=== PATIENT | female | born 1960 | race Caucasian/White ===

== ENCOUNTER 2020-12-23 18:13 | Inpatient (IN) ==
[2020-12-23] MEDS ORDERED: ASPIRIN CHEW 324 MG PO STA (19:09)
--- NOTE | 2020-12-23 19:22 | Emergency Department Note ---
Impression & Plan Chest pain, Abnormal EKG, Elevated troponin I level ED Provider Note NAME: VEENA DELUNA AGE: 60 SEX: F : 1960 ARRIVES VIA: Walk-In INFORMANT: Patient, ED PROVIDER(S): Robert Ventura DO CHIEF COMPLAINT: Chest pain HPI: The patient is a 60-year-old female who presented to the emergency department with approximately 3 to 4 days of chest and back pain. The patient states that she started noticing symptoms since . She does note that her symptoms are worsened with ambulation as well as exertion. She also does no te some symptoms with bending over to pick things up and is unsure if this is from her back. The patient denies having any nausea. The patient denies having any lower extremity swelling but does complain of some shortness of breath. She is had history of shortness of breath in the past. 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 The patient has not had any recent procedures or long distance travel. She has never had a history of a clot in her legs or in her lungs. She states her symptoms are gone at this time. ROS: See above HPI for pertinent positives & negatives. A total of 10 systems reviewed and were otherwise negative. PAST MEDICAL HISTORY: See Below PAST SURGICAL HISTORY: See Below FAMILY HISTORY: See Below SOCIAL HISTORY: See Below HOME MEDICATIONS: See Below ALLERGIES: See Below VITALS: See Below PHYSICAL EXAMINATION: GENERAL: Patient is awake alert in no acute distress patient is resting comfortably and showing no signs of anxiety EYES: The conjunctivae are clear. The pupils are round and reactive. EARS, NOSE, MOUTH AND THROAT: The nose is without any evidence of any deformity. NECK: The neck is nontender and supple. RESPIRATORY: Normal respiratory effort is noted there is no evidence of wheezing rhonchi or rales CARDIOVASCULAR: Regular rate and rhythm noted there no murmurs rubs or gallops normal S1 normal S2. GASTROINTESTINAL: The abdomen is soft. Abdomen is nontender. MUSCULOSKELETAL/EXTREMITIES: There is no evidence of gross deformity full range of motion is noted in the hips and shoulders. SKIN: There is no obvious evidence of any rash. There are no petechiae, pallor or cyanosis noted. NEUROLOGIC: Patient is awake alert and oriented x3 strength is symmetric patellar reflexes are 2+ bilaterally MEDICAL DECISION MAKING: The patient is a 60-year-old female who presented to the emergency department for an evaluation of chest discomfort. The patient had no chest discomfort in the emergency department. I did discuss the patient's laboratory and radiographic studies with her. I also discussed the limitations of the emergency department work-up for chest pain with her. Ultimately she was found to have an abnormal EKG with a detectable troponin. For this reason I discussed her case with the on-call [facility] hospitalist group. They have agreed to evaluate the patient in the emergency department for further management and disposition. The patient was treated with aspirin as well as beta-blockers in the emergency department. She was also treated with nitroglycerin. Triage Nursing notes reviewed. Prior medical records reviewed Vital Signs: reviewed and remarkable for no significant abnormalities Differential diagnosis: Cardiac ischemia, aortic dissection, pulmonary embolism, pneumothorax, pneumonia, pericarditis, myocarditis, esophageal rupture, GERD, cholecystitis, pancreatitis, musculoskeletal, as well as other pathologies. ER treatment provided: See below Diagnostics interpreted by me: ECG: EKG was obtained in the emergency department. My interpretation is normal sinus rhythm at 80 bpm. Inferior and anterior T wave versions were noted. There was no PVCs. Low lateral ST segment abnormalities were noted. No previou s tracing was available. Cardiac Monitoring: An order was placed for continuous cardiac monitoring. The monitor shows a rate of 72 bpm with sinus rhythm. Laboratory studies: As stated above and show below. Imaging studies: See below Consultation(s): I discussed this case with Dr. Chen. He will evaluate the patient in the emergency department for further management and disposition. Past Med/Surg History Surgical History History of cholecystectomy History of hysterectomy History of sinus surgery Family History Other Allergies Asthma Cancer Diabetes Heart disease Tuberculosis Denies family history of Lung disease Social History Smoking Status: Never smoker Hx Alcohol Use: Yes Hx Substance Use: No Preferred Language: Nepalese Communication Ability: Effective Fly Finisher Required: No Beliefs That Will Affect Care: None marital status: Current Living Situation: Spouse How many Children do You have: 3 Other Information That Helps Us Care for You: No Feels Safe at Home: Yes Safety Concerns: Feels Safe At This Time Assistive Devices: None Allergies Allergies Allergy/AdvReac Type Severity Reaction Status Date / Time venlafaxine [From Effexor] AdvReac Severe Elevated Unverified 12/23/20 20:29 Blood Pressure montelukast [From Singulair] AdvReac Unknown Unknown Unverified 12/23/20 20:29 Home Meds Home Medications Medication Instructions Recorded Confirmed methylphenidate HCl 54 mg 54 mg PO QAM 11/29/19 12/23/20 tablet,extended release 24 hr (Concerta) duloxetine 30 mg capsule,delayed 60 mg PO QAM 12/23/20 12/23/20 release (Cymbalta) levalbuterol tartrate 45 2 inh INHALATION Q6H 12/23/20 12/23/20 mcg/actuation aerosol inhaler (Xopenex HFA) mirtazapine 15 mg tablet (Remeron) 15 mg PO HS 12/23/20 12/23/20 omeprazole 20 mg capsule,delayed 20 mg PO HS 12/23/20 12/23/20 release Previous Rx's Medication Instructions Recorded budesonide-formoterol HFA 80 2 puff INHALATION BID #3 inhaler 10/30/20 mcg-4.5 mcg/actuation aerosol inhaler (Symbicort) Results & Data (ED) Vital Signs Vital Signs - 24 hr 12/23/20 18:16 12/23/20 18:31 12/23/20 18:40 Temperature 36.3 C L Temperature Source Temporal Artery Scan Pulse Rate 84 75 79 Pulse Rate [Radial] Pulse Rhythm Regular Pulse Strength Normal Respiratory Rate 18 19 16 Respiratory Effort / Characteristics Non-Labored Spontaneous Respiratory Depth Normal Respiratory Pattern Regular Blood Pressure 150/93 H Blood Pressure [Left Arm] Blood Pressure Mean 112 Blood Pressure Mean [Left Arm] Blood Pressure Position Sitting Pulse Oximetry 96 Oxygen Delivery Method Room Air Sepsis Recent Fever Within 48 Hours No Sepsis New/Unexplained Change in Mental Status N/A Sepsis Action Taken by Nursing No Action Required 12/23/20 18:50 12/23/20 19:00 12/23/20 19:10 Temperature Temperature Source Pulse Rate 79 89 80 Pulse Rate [Radial] Pulse Rhythm Pulse Strength Respiratory Rate 22 25 H 18 Respiratory Effort / Characteristics Respiratory Depth Respiratory Pattern Blood Pressure 139/92 Blood Pressure [Left Arm] Blood Pressure Mean 107 Blood Pressure Mean [Left Arm] Blood Pressure Position Pulse Oximetry Oxygen Delivery Method Sepsis Recent Fever Within 48 Hours Sepsis New/Unexplained Change in Mental Status Sepsis Action Taken by Nursing 12/23/20 19:20 12/23/20 19:30 12/23/20 19:40 Temperature Temperature Source Pulse Rate 81 74 75 Pulse Rate [Radial] Pulse Rhythm Pulse Strength Respiratory Rate 22 12 24 Respiratory Effort / Characteristics Respiratory Depth Respiratory Pattern Blood Pressure Blood Pressure [Left Arm] Blood Pressure Mean Blood Pressure Mean [Left Arm] Blood Pressure Position Pulse Oximetry Oxygen Delivery Method Sepsis Recent Fever Within 48 Hours Sepsis New/Unexplained Change in Mental Status Sepsis Action Taken by Nursing 12/23/20 19:50 12/23/20 20:00 12/23/20 20:10 Temperature Temperature Source Pulse Rate 72 72 84 Pulse Rate [Radial] Pulse Rhythm Pulse Strength Respiratory Rate 16 23 28 H Respiratory Effort / Characteristics Respiratory Depth Respiratory Pattern Blood Pressure Blood Pressure [Left Arm] Blood Pressure Mean Blood Pressure Mean [Left Arm] Blood Pressure Position Pulse Oximetry Oxygen Delivery Method Sepsis Recent Fever Within 48 Hours Sepsis New/Unexplained Change in Mental Status Sepsis Action Taken by Nursing 12/23/20 20:20 12/23/20 20:30 12/23/20 21:04 Temperature Temperature Source Pulse Rate 80 75 Pulse Rate [Radial] 73 Pulse Rhythm Pulse Strength Respiratory Rate 16 24 16 Respiratory Effort / Characteristics Respiratory Depth Respiratory Pattern Blood Pressure Blood Pressure [Left Arm] 139/72 Blood Pressure Mean Blood Pressure Mean [Left Arm] 94 Blood Pressure Position Pulse Oximetry 97 Oxygen Delivery Method Sepsis Recent Fever Within 48 Hours Sepsis New/Unexplained Change in Mental Status Sepsis Action Taken by Residential Medications Current Medication List: was personally reviewed by me Laboratory Data Attestation: I reviewed the patient's lab results. Result diagrams: 12/24/20 01:36 12/24/20 01:36 Lab Results 12/23/20 12/23/20 12/23/20 Range/Units 17:37 17:37 18:42 WBC 7.42 (4.8-10.8) K/uL RBC 4.56 (4.2-5.4) M/uL Hgb 13.8 (12.0-16.0) g/dL Hct 41.6 (37-47) % MCV 91.2 (80-100) fL MCH 30.3 (25-34) pg MCHC 33.2 (32-36) g/dL RDW Std Deviation 44.2 (36.4-46.3) fL RDW Coeff of Coni 13.2 (11.5-14.5) % Plt Count 327 (130-400) K/uL MPV 9.1 (7.4-10.4) fL Immature Gran % (Auto) 0.3 % Neut % (Auto) 53.3 % Lymph % (Auto) 35.3 % Canyon % (Auto) 9.8 % Eos % (Auto) 1.2 % Baso % (Auto) 0.1 % Neut # (Auto) 3.95 (1.4-6.5) K/uL Lymph # (Auto) 2.62 (1.2-3.4) K/uL Canyon # (Auto) 0.73 H (0.11-0.59) K/uL Eos # (Auto) 0.09 (0-0.5) K/uL Baso # (Auto) 0.01 (0-0.2) K/uL Immature Gran # (Auto) 0.02 (0.00-0.02) K/uL PT (9.0-12.0) Seconds INR (0.9-1.1) APTT (21.0-31.0) Seconds PTT Ratio D-Dimer (0-500) ug/L FEU Sodium (136-145) mmol/L Potassium (3.5-5.1) mmol/L Chloride (98-107) mmol/L Carbon Dioxide (21-32) mmol/L Anion Gap (3-11) BUN (7-18) mg/dl Creatinine (0.6-1.2) mg/dl Est Cr Clr Drug Dosing ml/min Est GFR ( Amer) ml/min Est GFR (Non-Af Amer) ml/min BUN/Creatinine Ratio (10-20) Glucose (70-99) mg/dl Calcium (8.5-10.1) mg/dl Total Bilirubin (0.2-1) mg/dl AST (15-37) U/L ALT (12-78) U/L Alkaline Phosphatase (45-117) U/L Troponin I (0-0.045) ng/ml Total Protein (6.4-8.2) gm/dl Albumin (3.4-5.0) gm/dl Globulin (2.5-4.0) gm/dl Albumin/Globulin Ratio (0.9-2) Lipase (73-393) U/L COVID-19 Eval Order Covid19 at [facility] SARS-CoV-2 (PCR) NEGATIVE (Negative) 12/23/20 12/23/20 Range/Units 18:42 18:42 WBC (4.8-10.8) K/uL RBC (4.2-5.4) M/uL Hgb (12.0-16.0) g/dL Hct (37-47) % MCV (80-100) fL MCH (25-34) pg MCHC (32-36) g/dL RDW Std Deviation (36.4-46.3) fL RDW Coeff of Coni (11.5-14.5) % Plt Count (130-400) K/uL MPV (7.4-10.4) fL Immature Gran % (Auto) % Neut % (Auto) % Lymph % (Auto) % Canyon % (Auto) % Eos % (Auto) % Baso % (Auto) % Neut # (Auto) (1.4-6.5) K/uL Lymph # (Auto) (1.2-3.4) K/uL Canyon # (Auto) (0.11-0.59) K/uL Eos # (Auto) (0-0.5) K/uL Baso # (Auto) (0-0.2) K/uL Immature Gran # (Auto) (0.00-0.02) K/uL PT 10.9 (9.0-12.0) Seconds INR 1.1 (0.9-1.1) APTT 27.1 (21.0-31.0) Seconds PTT Ratio 1.0 D-Dimer < 190 (0-500) ug/L FEU Sodium 141 (136-145) mmol/L Potassium 4.2 (3.5-5.1) mmol/L Chloride 107 (98-107) mmol/L Carbon Dioxide 25 (21-32) mmol/L Anion Gap 9.0 (3-11) BUN 15 (7-18) mg/dl Creatinine 0.86 (0.6-1.2) mg/dl Est Cr Clr Drug Dosing 72.5 ml/min Est GFR ( Amer) 86.3 ml/min Est GFR (Non-Af Amer) 74.5 ml/min BUN/Creatinine Ratio 16.9 (10-20) Glucose 99 (70-99) mg/dl Calcium 9.0 (8.5-10.1) mg/dl Total Bilirubin 0.2 (0.2-1) mg/dl AST 33 (15-37) U/L ALT 44 (12-78) U/L Alkaline Phosphatase 77 (45-117) U/L Troponin I 0.108 H* (0-0.045) ng/ml Total Protein 7.3 (6.4-8.2) gm/dl Albumin 3.7 (3.4-5.0) gm/dl Globulin 3.6 (2.5-4.0) gm/dl Albumin/Globulin Ratio 1.0 (0.9-2) Lipase 152 (73-393) U/L COVID-19 Eval Order SARS-CoV-2 (PCR) (Negative) Administered Medications Acetaminophen (Acetaminophen 325 Mg Tab) 650 mg PO Q4H PRN PRN Reason: Pain or Fever Stop: 01/22/21 21:38 Last Admin: 12/24/20 09:15 Dose: 650 mg Documented by: [id number] Admin: 12/23/20 21:47 Dose: 650 mg Documented by: [id number] Aspirin (Aspirin 81 Mg Ectab) 81 mg PO [facility] Stop: 01/23/21 08:59 Last Admin: 12/24/20 07:44 Dose: 81 mg Documented by: [id number] Duloxetine HCl (Duloxetine Hcl 60 Mg Cap) 60 mg PO [facility] Stop: 01/23/21 08:59 Last Admin: 12/24/20 07:44 Dose: 60 mg Documented by: [id number] Fluticasone/Vilanterol (Fluticasone/Vilanterol 100/25mcg 14 Puffs/Inhaler) 1 puffs INH DAILY [facility]; Protocol Stop: 01/23/21 08:59 Last Admin: 12/24/20 07:52 Dose: Not Given Documented by: [id number] Metoprolol Succinate (Metoprolol Succ 25mg Ext Rel Tab) 25 mg PO [facility] Stop: 01/23/21 08:59 Last Admin: 12/24/20 07:44 Dose: 25 mg Documented by: [id number] Mirtazapine (Mirtazapine Tab 15 Mg Tab) 15 mg PO HS JULIET Stop: 01/22/21 22:59 Last Admin: 12/23/20 23:06 Dose: 15 mg Documented by: [id number] Pantoprazole Sodium (Pantoprazole 40 Mg Tab) 40 mg PO HS JULIET; Protocol Stop: 01/22/21 22:59 Last Admin: 12/23/20 23:06 Dose: 40 mg Documented by: [id number] Discontinued Medications Aspirin (Aspirin Chew 324 Mg) 324 mg PO NOW STA Stop: 12/23/20 19:10 Last Admin: 12/23/20 19:20 Dose: 324 mg Documented by: [id number] Clopidogrel Bisulfate (Clopidogrel Bisulfate 300 Mg Tab) Confirm Administered Dose 600 mg .ROUTE .STK-MED ONE Stop: 12/24/20 13:46 Last Admin: 12/24/20 13:46 Dose: 600 mg Documented by: [id number] Fentanyl Citrate (Fentanyl Citrate 100 Mcg/2 Ml Vial) Confirm Administered Dose 100 mcg .ROUTE .STK-MED ONE Stop: 12/24/20 11:55 Last Admin: 12/24/20 13:42 Dose: 100 mcg Documented by: [id number] Heparin Sodium (Porcine) (Heparin (Porcine) 1000 Unit/Ml 10 Ml (Venipuncturist Use Only)) Confirm Administered Dose 10,000 units .ROUTE .STK-MED ONE Stop: 12/24/20 11:55 Last Admin: 12/24/20 13:42 Dose: 10,000 units Documented by: [id number] Heparin Sodium/Sodium Chloride (Heparin In Nss Infusion 1000 Unit/500 Ml (2 U/Ml) Bag) Confirm Administered Dose 3,000 units IV .STK-MED ONE Stop: 12/24/20 11:55 Last Admin: 12/24/20 13:14 Dose: 3,000 units Documented by: [id number] Levalbuterol HCl (Levalbuterol Tartrate 15 Gm Hfa.Aer.Ad) 2 puffs INH Q6R JULIET Stop: 01/22/21 22:29 Last Admin: 12/24/20 07:30 Dose: Not Given Documented by: [id number] Admin: 12/24/20 00:49 Dose: 2 puffs Documented by: [id number] Admin: 12/24/20 00:42 Dose: Not Given Documented by: [id number] Metoprolol Succinate (Metoprolol Succ 50mg Ext Rel Tab) 25 mg PO NOW STA Stop: 12/23/20 20:28 Last Admin: 12/23/20 21:13 Dose: 25 mg Documented by: [id number] Midazolam HCl (Midazolam Hcl 1 Mg/Ml 2ml Vial) Confirm Administered Dose 2 mg .ROUTE .STK-MED ONE Stop: 12/24/20 11:55 Last Admin: 12/24/20 13:42 Dose: 2 mg Documented by: [id number] Midazolam HCl (Midazolam Hcl 1 Mg/Ml 2ml Vial) Confirm Administered Dose 2 mg .ROUTE .STK-MED ONE Stop: 12/24/20 13:32 Last Increment: 12/24/20 13:43 Dose: 1 mg Documented by: [id number] Nicardipine HCl (Nicardipine Hcl Inj 2.5 Mg/Ml 10 Ml Amp) Confirm Administered Dose 25 mg .ROUTE .STK-MED ONE Stop: 12/24/20 11:55 Last Admin: 12/24/20 13:14 Dose: 25 mg Documented by: [id number] Nitroglycerin (Nitroglycerin 2% Ointment 30gm Tube) 1 inch EXT NOW ONE Stop: 12/23/20 20:28 Last Admin: 12/23/20 20:38 Dose: 1 inch Documented by: [id number] Nitroglycerin (Nitroglycerin Sl 0.4 Mg/Tab Tab) Confirm Administered Dose 0.4 mg .ROUTE .STK-MED ONE Stop: 12/24/20 09:03 Last Admin: 12/24/20 09:11 Dose: 0.4 mg Documented by: [id number] Nitroglycerin (Nitroglycerin Sl 0.4 Mg/Tab Tab) Confirm Administered Dose 0.4 mg .ROUTE .STK-MED ONE Stop: 12/24/20 09:03 Last Admin: 12/24/20 10:36 Dose: Not Given Documented by: [id number] Nitroglycerin (Nitroglycerin Sl 0.4 Mg/Tab Tab) 0.4 mg SL ONCE ONE Stop: 12/24/20 09:04 Last Admin: 12/24/20 09:04 Dose: 0.4 mg Documented by: [id number] Nitroglycerin/Dextrose (Nitroglycerin/D5w 100mcg/Ml 20ml Syr) Confirm Administered Dose 2,000 mcg .ROUTE .STK-MED ONE Stop: 12/24/20 11:55 Last Admin: 12/24/20 13:14 Dose: 2,000 mcg Documented by: [id number] Norepinephrine Bitartrate (Norepinephrine Bitartrate 1 Mg/Ml 4 Ml Vial (Venipuncturist Use Only)) Confirm Administered Dose 8 mg .ROUTE .STK-MED ONE Stop: 12/24/20 13:15 Last Admin: 12/24/20 13:44 Dose: Not Given Documented by: [id number] Imaging Data Radiologist's Impression: Chest X-Ray 12/23/20 18:54 XR chest 1V portable CLINICAL HISTORY: Chest Pain COMPARISON STUDY: November 29, 2019 FINDINGS: No pneumothorax. No pleural effusion. No large infiltrates or consolidative lesions are seen. Linear density at bilateral lower lungs was also seen on prior study and might represent chronic fibrotic changes or scattered atelectasis. Cardiomediastinal silhouette is within upper limits of normal, slightly worsened since prior. No significant pulmonary vascular congestion.. Aorta is tortuous. Osseous structures: Mild degenerative changes of the spine. IMPRESSION: 1. Interval prominence of the cardiac silhouette without significant pulmonary vascular congestion. ACT 112: Negative or not required by law. The above report was generated using voice recognition software. It may contain grammatical, syntax or spelling errors. Electronically signed by: Tawny Hurst DO 12/23/2020 8:07 PM Discharge Plan Visit Data Chief Complaint: Chest Pain Stated Complaint: CHEST PAIN ED Provider: Robert Ventura Discharge Problem: Chest pain, Abnormal EKG, Elevated troponin I level Patient Disposition: Admitted As Inpatient Condition: Good Discharge Instructions Interventions: ED Discharge Assessment Last Done: 12/23/20 22:04
[2020-12-23 19:37] LABS: Basophils # (auto) 0.01 K/uL (0-0.2); Basophils % (auto) 0.1 %; Eosinophils # (auto) 0.09 K/uL (0-0.5); Eosinophils % (auto) 1.2 %; Hematocrit (blood only) 41.6 % (37-47); Hemoglobin 13.8 g/dL (12.0-16.0); Immature Granulocytes # (auto) 0.02 K/uL (0.00-0.02); Immature Granulocytes % (auto) 0.3 %; Lymphocytes # (auto) 2.62 K/uL (1.2-3.4); Lymphocytes % (auto) 35.3 %; Mean Corpuscular Hemoglobin 30.3 pg (25-34); Mean Corpuscular Hgb Conc 33.2 g/dL (32-36); Mean Corpuscular Volume 91.2 fL (80-100); Mean Platelet Volume 9.1 fL (7.4-10.4); Monocytes # (auto) 0.73 K/uL (0.11-0.59); Monocytes % (auto) 9.8 %; Neutrophils # (auto) 3.95 K/uL (1.4-6.5); Neutrophils % (auto) 53.3 %; Platelet Count 327 K/uL (130-400); RDW Coefficient of Variation 13.2 % (11.5-14.5); RDW Standard Deviation 44.2 fL (36.4-46.3); Red Blood Count 4.56 M/uL (4.2-5.4); White Blood Count 7.42 K/uL (4.8-10.8)
[2020-12-23 19:53] LABS: Albumin Level 3.7 gm/dl (3.4-5.0); BUN Creatinine Ratio 16.9 (10-20); Creatinine Clr Calc Pharmacy 72.5 ml/min; Est GFR (African American) 86.3 ml/min; Est GFR (Non-African American) 74.5 ml/min; Potassium 4.2 mmol/L (3.5-5.1)
[2020-12-23 19:56] LABS: D Dimer < 190 ug/L FEU (0-500); INR 1.1 (0.9-1.1); Partial Thromboplastin Time 27.1 Seconds (21.0-31.0); Prothrombin Time 10.9 Seconds (9.0-12.0)
[2020-12-23 20:03] LABS: Bilirubin,Total 0.2 mg/dl (0.2-1); Globulin 3.6 gm/dl (2.5-4.0); Total Protein 7.3 gm/dl (6.4-8.2); Troponin I 0.108 ng/ml (0-0.045)
--- NOTE | 2020-12-23 20:08 | XRay Report ---
XR chest 1V portable CLINICAL HISTORY: Chest Pain COMPARISON STUDY: November 29, 2019 FINDINGS: No pneumothorax. No pleural effusion. No large infiltrates or consolidative lesions are seen. Linear density at bilateral lower lungs was a lso seen on prior study and might represent chronic fibrotic changes or scattered atelectasis. Cardiomediastinal silhouette is within upper limits of normal, slightly worsened since prior. No significant pulmonary vascular congestion.. Aorta is tortuous. Osseous structures: Mild degenerative changes of the spine. IMPRESSION: 1. Interval prominence of the cardiac silhouette without significant pulmonary vascular congestion. ACT 112: Negative or not required by law. The above report was generated using voice recognition software. It may contain grammatical, syntax o r spelling errors. Electronically signed by: Tawny Hurst DO 12/23/2020 8:07 PM
[2020-12-23] MEDS ORDERED: METOPROLOL SUCC 50MG EXT REL TAB PO STA (20:27)
[2020-12-23] MEDS ORDERED: NITROGLYCERIN 2% OINTMENT 30GM TUBE EXT ONE (20:27)
[2020-12-23] MEDS: ACETAMINOPHEN 325 MG TAB PO PRN (21:47)
--- NOTE | 2020-12-23 21:53 | History & Physical Report ---
Date of Service December 23, 2020 Assessment & Plan (1) Chest pain: Plan: 60 yo F w/ pMHx. of allergic rhinitis, asthma, allergies, and depression presenting with chest pain concerning for NSTEMI NSTEMI Symptoms concerning for unstable angina and pt. found to have elevated troponin and concerns on EKG for ischemia along with concerning family history of [place] at an early age. Differential includes - 1) pericarditis given diffuse EKG changes and positional worsening of symptoms although - no viral prodrome 2) vasospasm although - no new medications or clear precipitating factors 3) stress cardiomyopathy although - no identifiable new stress that would cause this HEART score - 6 points - moderate Wells' criteria for PE - 0 points - low risk EKG with: T wave inversion in III, AVF, V2, V3, V4, V5 no significant ST elevation or depression Troponin: 0.108 (18:45) -> 0.069 (1:36) -> D-dimer not elevated - admitted to PCU - started on metoprolol succinate & ASA - Nitroglycerin paste applied - currently chest pain free, repeat EKG with chest pain and at 11PM - low threshold to start Heparin - Cardiology consulted - ECHO ordered to look for wall motion abnormalities and would potentially show pericardial effusion or HF - trending troponin - checking TSH w/ AM labs - A1c and lipid profile to further risk stratify Asthma - continue home inhaler regimen - continue xopenex Depression - continue duloxetine and mirtazapine Reflux - continue Omeprazole Code: full Diet: NPO now - when restarting diet - gluten sensitivity DVT: SCD's, ambulation (2) Asthma: (3) Depression: (4) Exertional shortness of breath: History of Present Illness Chief Complaint: Chest pain Primary Care Provider: ALEX Saleem Lisa Cage is a 60-year-old female with a past medical history of allergic rhinitis, asthma, allergies, and depression presenting with chest pain. She first developed chest pain on which has increased in frequency and intensity. The pain was 4/10 at it's worst, felt like pressure or a weight on her chest the pain would last about 5 minutes and was brought on by activity and when she hunched down to garden. She would have improvement with rest. She has associated nausea and shortness of breath along with numbness and tingling in her arms bilaterally (worse than her chronic numbness and tingling). She has never had anything like this prior to several days ago. She had one event on , one event on Thursday, two events on Thursday and two events on Thursday. She initially attributed the pain to back pain but she came in because the pain was getting worse. She had an ECHO in November 2019 that showed a normal EF and grade I diastolic dysfunction. Social Hx.: - denies tobacco use - 2 drinks per week down from 2 drinks per day (2 weeks prior) - denies rec. drug use sig. Family Hx.: - Father had a heart attack in his 50's - PGF had either an aneurysm or heart attack in his 30's - PGM had a heart attack in her 50's Yousuf would like to be updated with any changes @ # [phone] Allergies Allergy/AdvReac Type Severity Reaction Status Date / Time venlafaxine [From Effexor] AdvReac Severe Elevated Unverified 12/23/20 20:29 Blood Pressure montelukast [From Singulair] AdvReac Unknown Unknown Unverified 12/23/20 20:29 Home Medications Medication Instructions Recorded Confirmed Type methylphenidate HCl 54 mg 54 mg PO QAM 11/29/19 12/23/20 History tablet,extended release 24 hr (Concerta) budesonide-formoterol HFA 80 2 puff INHALATION BID #3 inhaler 02/03/20 12/23/20 Rx mcg-4.5 mcg/actuation aerosol inhaler (Symbicort) duloxetine 30 mg capsule,delayed 60 mg PO QAM 12/23/20 12/23/20 History release (Cymbalta) levalbuterol tartrate 45 2 inh INHALATION Q6H 12/23/20 12/23/20 History mcg/actuation aerosol inhaler (Xopenex HFA) mirtazapine 15 mg tablet (Remeron) 15 mg PO HS 12/23/20 12/23/20 History aspirin 81 mg tablet,delayed 81 mg PO QAM #30 tab 12/25/20 Rx release atorvastatin 40 mg tablet 40 mg PO QAM 30 Days #30 tab 12/25/20 Rx clopidogrel 75 mg tablet 75 mg PO QAM 30 Days #30 tab 12/25/20 Rx metoprolol succinate 25 mg 25 mg PO QAM 30 Days #30 tab 12/25/20 Rx tablet,extended release 24 hr Past Med/Surg History Surgical History History of cholecystectomy History of hysterectomy History of sinus surgery Family History Other Allergies Asthma Cancer Diabetes Heart disease Tuberculosis Denies family history of Lung disease Social History Smoking Status: Never smoker Hx Alcohol Use: Yes Hx Substance Use: No Preferred Language: Urdu Communication Ability: Effective Medicine 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 Required: No Beliefs That Will Affect Care: None marital status: Current Living Situation: Spouse How many Children do You have: 3 Feels Safe at Home: Yes Assistive Devices: None Review of Systems Review of Systems: Constitutional: denies fevers, chills, vomiting, kobe phoresis, weight loss admits nausea Head: denies trauma, LOC, headache, confusion, vision changes admits lightheadedness with episodes neurologic: denies syncope, slurring of speech, focal weakness admits presyncope, numbness and tingling (bilateral arms) ENT: denies rhinorrhea, stuffiness, sneezing, sore throat Cardiac: denies palpitations, leg edema, orthopnea admits chest pain Pulm.: denies cough, hemoptysis, sputum production admits chronic shortness of breath that is worse with events GI: denies constipation, diarrhea, blood in stool, changes in bowel habits : denies urgency, frequency, dysuria Physical Exam Constitutional: WD/WN, vitals as above Eyes: PERRL, conjunctivae normal, anicteric sclerae ENMT: external ear and nose normal, oropharynx normal Neck: normal visual inspection Respiratory: normal respiratory effort, lungs clear to auscultation Cardiovascular: Rate/Rhythm: regular rate and regular rhythm Heart Sounds: no murmur Vessels: no JVD Extremities: no edema - no costochondral tenderness Gastrointestinal (Abdomen): normal bowel sounds, soft, nontender, no hepatosplenomegaly Skin: no rashes, warm and dry Neurologic: no focal motor deficits Psychiatric: A+Ox3, euthymic affect Results & Data Results & Data ([facility]) Vital Signs (Past 12 Hours) Vital Signs Temp Pulse Pulse Resp BP BP Pulse Ox 12/23/20 21:31 97 12/23/20 21:04 73 16 139/72 97 12/23/20 20:30 75 24 12/23/20 20:20 80 16 12/23/20 20:10 84 28 H 12/23/20 20:00 72 23 12/23/20 19:50 72 16 12/23/20 19:40 75 24 12/23/20 19:30 74 12 12/23/20 19:20 81 22 12/23/20 19:10 80 18 12/23/20 19:00 89 25 H 139/92 12/23/20 18:50 79 22 12/23/20 18:40 79 16 12/23/20 18:31 75 19 12/23/20 18:16 36.3 C L 84 18 150/93 H 96 CBC Results Results Complete Blood Count Results: RBC 4.46 M/uL (4.2-5.4) 12/25/20 WBC 6.07 K/uL (4.8-10.8) 12/25/20 Hgb 13.3 g/dL (12.0-16.0) 12/25/20 Hct 41.5 % (37-47) 12/25/20 Plt Count 291 K/uL (130-400) 12/25/20 Chemistry (BMP) Results BMP Results: Sodium 141 mmol/L (136-145) 12/25/20 Potassium 4.0 mmol/L (3.5-5.1) 12/25/20 Chloride 108 mmol/L (98-107) H 12/25/20 BUN 19 mg/dl (7-18) H 12/25/20 Creatinine 0.66 mg/dl (0.6-1.2) 12/25/20 Glucose 100 mg/dl (70-99) H 12/25/20 Code Status & VTE Plan VTE Prophylaxis Plan VTE Prophylaxis will be ordered: Yes Supervising Physician Co-Signing Physician Notes Attending addendum: I have physically seen this patient, have supervised the medical residents activities, and agree with the H&P unless as otherwise noted. Assessment and Plan: NSTEMI- The patient will be admitted to telemetry for serial cardiac enzymes, serial EKG's, cardiac rhythm monitoring and a 2-D echocardiogram with Dopplers. EKG with T wave inversions as noted Troponin 0.108 Start metoprolol succinate and aspirin Nitropaste 1 inch to anterior chest wall every 6 hours If symptomatic overnight we will start IV heparin Consult cardiology Check a hemoglobin A1c and fasting lipid panel Depression- Continue duloxetine and mirtazapine Asthma- Continue usual inhalers Remaining orders and notations as noted Resident Activity Tracking Resident Involvement: Resident Care Provided Care Provided: Adult [facility] Medicine
[2020-12-23] MEDS ORDERED: POLYETHYLENE (MIRALAX) 17 GM PACK PO PRN (22:14)
[2020-12-23] MEDS: MIRTAZAPINE TAB 15 MG TAB PO SCH (23:06)
[2020-12-23] MEDS: PANTOprazole 40 MG TAB PO SCH (23:06)
[2020-12-24] MEDS: LEVALBUTEROL TARTRATE 15 GM HFA.AER.AD INH SCH ×3 (00:42→07:30)
[2020-12-24 01:54] LABS: Basophils # (auto) 0.02 K/uL (0-0.2); Basophils % (auto) 0.2 %; Eosinophils % (auto) 2.5 %; Hematocrit (blood only) 41.2 % (37-47); Hemoglobin 13.3 g/dL (12.0-16.0); Immature Granulocytes # (auto) 0.02 K/uL (0.00-0.02); Immature Granulocytes % (auto) 0.2 %; Lymphocytes # (auto) 3.54 K/uL (1.2-3.4); Lymphocytes % (auto) 44.1 %; Mean Corpuscular Hgb Conc 32.3 g/dL (32-36); Mean Corpuscular Volume 92.8 fL (80-100); Mean Platelet Volume 8.8 fL (7.4-10.4); Monocytes # (auto) 0.62 K/uL (0.11-0.59); Monocytes % (auto) 7.7 %; Neutrophils # (auto) 3.63 K/uL (1.4-6.5); Neutrophils % (auto) 45.3 %; Platelet Count 306 K/uL (130-400); RDW Coefficient of Variation 13.2 % (11.5-14.5); Red Blood Count 4.44 M/uL (4.2-5.4); White Blood Count 8.03 K/uL (4.8-10.8)
[2020-12-24 02:12] LABS: BUN Creatinine Ratio 22.1 (10-20); Calcium 8.6 mg/dl (8.5-10.1); Creatinine Clr Calc Pharmacy 67.7 ml/min; Est GFR (African American) 79.6 ml/min; Est GFR (Non-African American) 68.6 ml/min; Potassium 3.6 mmol/L (3.5-5.1)
[2020-12-24] MEDS: METOPROLOL SUCC 25MG EXT REL TAB PO SCH (07:44)
[2020-12-24] MEDS: ASPIRIN 81 MG ECTAB PO SCH (07:44)
[2020-12-24] MEDS: DULoxetine HCL 60 MG CAP PO SCH (07:44)
[2020-12-24] MEDS: FLUTICASONE/VILANTEROL 100/25MCG 14 PUFFS/INHALER INH SCH (07:52)
--- NOTE | 2020-12-24 08:04 | Electrocardiogram Report ---
Test Reason : Blood Pressure : / mmHG Vent. Rate : 080 BPM Atrial Rate : 080 BPM P-R Int : 158 ms QRS Dur : 078 ms QT Int : 372 ms P-R-T Axes : 047 -12 -27 degrees QTc Int : 429 ms Normal sinus rhythm Left atrial enlargement Poor R wave progression, consider anterior [place] vs. lead placement vs. LVH Abnormal ECG No previous ECGs available Confirmed by Mook Rouse ([id number]) on 12/24/2020 8:04:04 AM Referred By: REFERRED SELF Confirmed By:Mook Rouse
--- NOTE | 2020-12-24 08:07 | Hospitalist Progress Note ---
Date of Service December 24, 2020 Assessment & Plan (1) Chest pain: Plan: 60 yo F w/ pMHx. of allergic rhinitis, asthma, allergies, and depression presenting with chest pain concerning for NSTEMI NSTEMI Symptoms concerning for unstable angina and pt. found to have elevated troponin and concerns on EKG for ischemia along with concerning family history of [place] at an early age. - EKG with: T wave inversion in III, AVF, V2, V3, V4, V5 no significant ST elevation or depression - Troponin: 0.108 (18:45) -> 0.069 (1:36) -> 0.039 (7:26) - Echocardiogram showing EF of 55 to 60%, normal LV systolic function, no wall motion abnormalities, grade 1 diastolic dysfunction, borderline concentric LVH - TSH normal - A1c of 5.7% - Cholesterol 202, LDL 112, HDL 48, TG 210 - Started metoprolol succinate & ASA - Cardiology consulted -- Cath performed - 95% stenosis to mid LAD. ROSANA placed -- DAPT with clopidogrel and ASA for 1 year -- Statin and ASCVD risk factor reduction - Start atorvastatin 40mg daily - Continue DAPT per cardiology as above - Consider lisinopril but BP well controlled generally and no DM2 - Continue telemetry monitoring Asthma - continue home regimen with Breo Ellipta, levalbuterol Depression - continue duloxetine and mirtazapine Reflux - continue Omeprazole Code: full Diet: Gluten free, PPI DVT: Lovenox 40mg SQ daily Dispo: Med/Surg Tele, likely DC tomorrow (2) Asthma: (3) Depression: (4) Exertional shortness of breath: Admission and Anticipated Discharge Date Admission Date: December 23, 2020 Supervising Physician Co-Signing Physician Notes Resident Physician Supervision Note: I independently interviewed and examined the patient and verified the mariano history and physical, reviewed labs and image studies and agree with resident Dr. Davis findings and care plan. Subjective Patient seen at bedside this AM. Reports that she has had no CP this morning and does not usually have any at rest. She mentions it started for her this past when she had a single episode, then again on Thursday, a couple of times on Thursday and again Thursday. No history of heart disease in her but has family history of MIs. Review of Systems Review of Systems: Denies CP, SOB, n/v, abd pain, diarrhea. Physical Exam Constitutional: WD/WN, vitals as above Eyes: PERRL, conjunctivae normal, anicteric sclerae Neck: normal visual inspection Respiratory: normal respiratory effort, lungs clear to auscultation Cardiovascular: Rate/Rhythm: regular rate and regular rhythm Heart Sounds: no murmur Vessels: no JVD Extremities: no edema Gastrointestinal (Abdomen): normal bowel sounds, soft, nontender, no hepatosplenomegaly Skin: no rashes, warm and dry Neurologic: no focal motor deficits Psychiatric: A+Ox3, euthymic affect Results & Data Results & Data ([facility]) Vital Signs (Past 12 Hours) Vital Signs Temp Pulse Pulse Resp BP Pulse Ox 12/24/20 07:00 36.8 C 72 20 110/65 98 12/24/20 03:14 36.5 C 55 L 18 104/63 94 12/24/20 00:50 72 16 94 12/24/20 00:04 36.6 C 84 20 121/74 95 12/23/20 22:13 36.6 C 72 19 126/76 95 12/23/20 21:31 97 12/23/20 21:04 73 16 139/72 97 12/23/20 20:30 75 24 12/23/20 20:20 80 16 12/23/20 20:10 84 28 H Resident Activity Tracking Resident Involvement: Resident Care Provided Care Provided: Adult Hospital Medicine
--- NOTE | 2020-12-24 08:11 | Electrocardiogram Report ---
Test Reason : Blood Pressure : / mmHG Vent. Rate : 070 BPM Atrial Rate : 070 BPM P-R Int : 158 ms QRS Dur : 086 ms QT Int : 422 ms P-R-T Axes : 037 -10 -08 degrees QTc Int : 455 ms Normal sinus rhythm Minimal voltage criteria for LVH, may be normal variant Poor R wave progression, consider anterior [place] vs. lead placement vs. LVH T-wave inversion in Anterior leads , consider ischemia Abnormal ECG When compared with ECG of 23-DEC-2020 18:19, No significant change was found Confirmed by Mook Rouse ([id number]) on 12/24/2020 8:10:55 AM Referred By: REFERRED SELF Confirmed By:Mook Rouse
[2020-12-24 08:24] LABS: Estimated Average Glucose 117 mg/dl; Hemoglobin A1C 5.7 % (4.5-5.6)
[2020-12-24 08:40] LABS: Thyroid Stimulating Hormone 0.49 uIu/ml (0.300-4.500); Troponin I 0.039 ng/ml (0-0.045)
[2020-12-24] MEDS ORDERED: MIRTAZAPINE TAB 15 MG TAB PO SCH (09:00)
[2020-12-24] MEDS ORDERED: NITROGLYCERIN SL 0.4 MG/TAB TAB ONE ×2 (09:02)
[2020-12-24] MEDS ORDERED: NITROGLYCERIN SL 0.4 MG/TAB TAB SL ONE (09:03)
[2020-12-24] MEDS: ACETAMINOPHEN 325 MG TAB PO PRN ×2 (09:15→23:01)
[2020-12-24] MEDS ORDERED: LEVALBUTEROL TARTRATE 15 GM HFA.AER.AD INH PRN (10:28)
--- NOTE | 2020-12-24 10:43 | Cardiology Consultation ---
Date of Consultation December 24, 2020 Assessment & Plan (1) Elevated troponin I level: (2) Chest pain: Although she has minimal vascular risk factors, etiology of crescendo chest discomfort must be presumed to be myocardial ischemia until proven otherwise given dynamic ECG changes, typical symptoms with epiphenomenon, and initially elevated troponin. Stress-induced cardiomyopathy is a consideration, but absence of typical wall motion abnormalities on echocardiogram weighs against this. Would not be appropriate to stress given her progressive symptoms and positive enzymes, discussed options including proceeding to cardiac catheterization to evaluate coronary anatomy. Patient is agreeable to invasive option for further cardiac assessment. Dr. Artem Ortiz will proceed with coronary angiograms sometime today. Further recommendations based on results. (3) Asthma: Quiesccent, no bronchospasm on exam, has not required inhalers recently. History of Present Illness Reason for Consultation: NSTEMI Requesting Physician: Felix Titus MD Attending Physician: Treasure Ibarra MD History of Present Illness 60-year-old woman with history of asthma, no known vascular history, who notes 1 week of intermittent anterior chest discomfort radiating through to her back and arms associated with arm paresthesias and occasionally nausea. Symptoms initially occurred with activity and resolved with rest, however she had an e pisode at rest this morning which was associated with deep and T wave inversions anteriorly. Initial ECG showed minor anterior T wave inversions, troponin elevated (0.108) before declining to normal. Initial review of echocardiogram shows normal systolic function no regional wall motion abnormalities. She has a strong family history of coronary artery disease (father with [place] in his 50s) but no other significant vascular risk factors. Her asthma has been quiescent for some time, she has not required her inhalers. She does not note significant dyspnea recently. She does note that her current job is quite stressful. She was asymptomatic at the time of my evaluation this morning. Allergies Allergy/AdvReac Type Severity Reaction Status Date / Time venlafaxine [From Effexor] AdvReac Severe Elevated Unverified 12/23/20 20:29 Blood Pressure montelukast [From Singulair] AdvReac Unknown Unknown Unverified 12/23/20 20:29 Home Medications Medication Instructions Recorded Confirmed Type methylphenidate HCl 54 mg 54 mg PO QAM 11/29/19 12/23/20 History tablet,extended release 24 hr (Concerta) budesonide-formoterol HFA 80 2 puff INHALATION BID #3 inhaler 02/03/20 12/23/20 Rx mcg-4.5 mcg/actuation aerosol inhaler (Symbicort) duloxetine 30 mg capsule,delayed 60 mg PO QAM 12/23/20 12/23/20 History release (Cymbalta) levalbuterol tartrate 45 2 inh INHALATION Q6H 12/23/20 12/23/20 History mcg/actuation aerosol inhaler (Xopenex HFA) mirtazapine 15 mg tablet (Remeron) 15 mg PO HS 12/23/20 12/23/20 History omeprazole 20 mg capsule,delayed 20 mg PO HS 12/23/20 12/23/20 History release Patient History Surgical History History of cholecystectomy History of hysterectomy History of sinus surgery Family History Other Allergies Asthma Cancer Diabetes Heart disease Tuberculosis Denies family history of Lung disease Social History Smoking Status: Never smoker Hx Alcohol Use: Yes Hx Substance Use: No Preferred Language: Albanian Communication Ability: Effective 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 Afebrile. Normotensive. Pulse 62 bpm and regular. Skin: no ecchymoses or generalized lesions. HEENT: unremarkable. Neck: no JVD or carotid bruits. Lungs: clear. Cardiac: regular rhythm, no murmur or gallop. Abdomen: benign. Extremities: no edema, pulses intact. Neurologic: normal affect, nonfocal. Results & Data ([facility]) Vital Signs (Past 12 Hours) Vital Signs Temp Pulse Resp BP Pulse Ox 12/24/20 09:18 62 107/64 12/24/20 09:13 120/79 12/24/20 09:04 137/84 12/24/20 07:00 98.2 F 72 20 110/65 98 12/24/20 03:14 97.7 F 55 L 18 104/63 94 12/24/20 00:50 72 16 94 12/24/20 00:04 97.9 F 84 20 121/74 95 Laboratory Results Normal CBC, coagulation studies, and electrolytes, BUN 20, creatinine 0.92. Hemoglobin A1c 5.7%. Troponin 0 0.108, 0.069, 0.039 sequentially. Cholesterol 202, HDL 48, LDL 112, triglycerides 210. Normal thyroid studies. Negative Covid PCR. Diagnostic Findings Serial ECG showed sinus rhythm with anterior T wave inversions which deepened on the most recent study obtained this morning during an episode of chest pain. Chest x-ray showed mildly prominent cardiac silhouette with minor fibrotic changes at the bases, no acute process. PG Care Time/CCT Total # of Minutes Spent Total Time Spent with Patient: Total time spent is greater than 50% in coordination of care (as documented) at patient's floor/unit and/or counseling patient: Coding Level of Care Code 14983 Inpt Consult Level 4 Diagnoses Elevated troponin I level R77.8 Chest pain R07.9 Chest pain type: unspecified Asthma J45.909 (1) Chest pain Chest pain type: unspecified Qualified Code(s): R07.9 - Chest pain, unspecified
[2020-12-24] MEDS ORDERED: fentaNYL citrate 100 MCG/2 ML VIAL ONE (11:54)
[2020-12-24] MEDS ORDERED: HEPARIN (PORCINE) 1000 UNIT/ML 10 ML (CATH LAB USE ONLY) ONE (11:54)
[2020-12-24] MEDS ORDERED: NITROGLYCERIN/D5W 100MCG/ML 20ML SYR ONE (11:54)
[2020-12-24] MEDS ORDERED: niCARdipine HCL INJ 2.5 MG/ML 10 ML AMP ONE (11:54)
[2020-12-24] MEDS ORDERED: MIDAZOLAM HCL 1 MG/ML 2ML VIAL ONE ×2 (11:54→13:31)
--- NOTE | 2020-12-24 12:06 | XCELERA ---
[id number]
--- NOTE | 2020-12-24 12:21 | Medical Student Progress Note ---
Date of Service December 24, 2020 Assessment & Plan (1) Chest pain: Plan: A&P: #NSTEMI s/p LAD drug-eluting stent - will cardiac will require Plavix and baby aspirin for 1 year post stent placement, in addition to cardiac rehab. For 2ndary prevention, high dose statin and BP control w/ lifestyle/pharmacologic intervention are indicated. Metoprolol should be well tolerated despite asthma due to cardioselectivity. Given FHx of DM2 in 1st deg. relatives and elevated lipid panel, lifestyle interventions and close f/u are necessary. #asthma: not currently under tx, recommend f/u with PCP #DVT prophylaxis - Lovenox #FEN - heart-healthy, low salt diet, can d/c NPO #code status - full code Disposition: watch overnight, can d/c tomorrow Admission and Anticipated Discharge Date Admission Date: December 23, 2020 Subjective CC: 60 y/o F exertional/intermittent chest pain assoc. w/ back pain, SOB, nausea, numbness/tingling in arms BL HPI: BP is a 60 y/o F w/ hx of asthma, depression, neck injury years ago, and acid reflux who is on 2nd day of hospital course. Presented to ED yesterday on 12/23 around 7:30pm. During the 4 days prior to ED visit, she had 1 or 2 five- minute episodes each day characterized by episodic chest pain/back pain rated 4 or 5/10 at worst. Assoc. w/ SOB, nausea, sensation of pressure on chest. Pt has baseline numbness/tingling due to prior neck injury that worsened during episodes. Exacerbated by exertion such as bending over and gardening. Lying down for several minutes relieves her sx. Today she had another episode of chest pain upon going to the bathroom, same sx as previous episodes. Sublingual nitro alleviated sx. Pt states HTN has been elevated in past year only. She presented to ED w/ BP of 150/93, pulse in 70s. Not currently taking any BP meds. Significant FHx includes [place], DM2 in 1st deg relatives and aneurysm/stroke in 1st and 2nd deg. relatives. Regarding asthma dx, pt hasn't taken prescribed levalbuterol or ICS-LABA in at least 6 months b/c she hasn't had asthma attacks, doesn't tolerate her meds well and says they elevate her BP. Pt reports baseline numbness/tingling in BL UE due to prior neck injury. No changes in speech, no weakness in UE/LE, no vision/hearing/smell changes. No recent illness, no leg swelling/redness/pain. No recent travel. Vaxxed against COVID. She shared her mental health has been stable recently. No concerns w/ depression meds. 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 PMHX: allergic rhinitis, asthma, depression, neck injury years ago PSHX: cholecystectomy, hysterectomy, sinus surgery MEDS: methylphenidate 54mg PO QAM, duloxetine 60mg PO QAM, mirtazapine 15mg, omeprazole 20mg PO daily ALLERGIES: venlafaxine (increased BP), Montelukast (unknown) FHX: [place] in 50s -dad, PGM aneurysm or [place] in 30s - PGF aortic aneurysm - mother DM 2- sister, brother, MGM stroke - MGM germ cell tumor - brother schizophrenia - mother SHX: Says she has good support system w/ family (/dad). 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 Stressful job. No tobacco, 2 EtOH drinks/week, no recreational drug use. Exercise has decreased over time, currently likes to garden. Review of Systems Respiratory: see HPI Cardiovascular: Additional Comments: see HPI Neurologic: see HPI Psychiatric: depression is stable, has good support system at home, mental health hit a low point during COVID but doing better now. Physical Exam Physical Exam: Appearance: NAD, appears well Respiratory: Resp: CTA BL, no rhales/rhonchi/wheezing Cardiovascular: CV: RRR, no M/R/G, radial pulses present BL, no carotid bruits appreciated, pedal pulses present BL; no unilateral leg swelling/redness/edema, no edema. Neurologic: CN 3-12 intact, sensory/motor function intact BL for UE/LE Results & Data ([facility]) Vital Signs (Past 12 Hours) Vital Signs Temp Pulse Resp BP Pulse Ox 12/24/20 12:07 36.8 C 56 L 16 148/94 H 96 12/24/20 09:18 62 107/64 12/24/20 09:13 120/79 12/24/20 09:04 137/84 12/24/20 07:00 36.8 C 72 20 110/65 98 12/24/20 03:14 36.5 C 55 L 18 104/63 94 12/24/20 00:50 72 16 94 Diagnostic Findings A total of 3 EKGs so far show consistent NSR, poor R wave progression, T wave inversion on anterior leads. The 3rd/most recent EKG from today 12/24 did show bradycardia at 57 bpm. Serial troponin I readings were 0.108, 0.069, 0.039. I was present during echocardiogram bedside, no structural/functional changes were noted but official interpretation pending. I was present for cardiac cath which showed 95% stenosis of the LAD. A drug eluting-stent was placed and the stenosis was successfully corrected. Activ. coag. time Kaolin 263 (H) Most recent triglycerides were 210., cholesterol 202, LDL 112, HGBA1C 5.7%. CMP/BMP reviewed, no concerns
--- NOTE | 2020-12-24 12:52 | Pre Anesthesia Assessment ---
Date of Service December 24, 2020 Pre Sedation Assessment Vital Signs Temp Pulse Pulse Resp BP BP Pulse Ox 12/24/20 12:07 98.2 F 56 L 16 148/94 H 96 12/24/20 09:18 62 107/64 12/24/20 09:13 120/79 12/24/20 09:04 137/84 12/24/20 07:00 98.2 F 72 20 110/65 98 12/24/20 03:14 97.7 F 55 L 18 104/63 94 12/24/20 00:50 72 16 94 12/24/20 00:04 97.9 F 84 20 121/74 95 12/23/20 22:13 97.9 F 72 19 126/76 95 12/23/20 21:31 97 12/23/20 21:04 73 16 139/72 97 12/23/20 20:30 75 24 12/23/20 20:20 80 16 12/23/20 20:10 84 28 H 12/23/20 20:00 72 23 12/23/20 19:50 72 16 12/23/20 19:40 75 24 12/23/20 19:30 74 12 12/23/20 19:20 81 22 12/23/20 19:10 80 18 12/23/20 19:00 89 25 H 139/92 12/23/20 18:50 79 22 12/23/20 18:40 79 16 12/23/20 18:31 75 19 12/23/20 18:16 97.3 F L 84 18 150/93 H 96 Cardiovascular RRR, no murmur, no edema Respiratory normal respiratory effort, lungs clear to auscultation Pre-Sedation Airway Assessment Smoking Status: Never smoker Hx Sleep Apnea: No Hx Difficult Intubation: No Short, Thick Neck: No Thyromental Distance: > or= 3.5 Finger Breadths Oral Cavity: + WNL Mallampati Class: III ASA: ASA4 Procedure Planning Contraindications for Sedation: none Current Medications Reviewed: Yes Notes The planned sedation has been discussed with the patient. Informed Consent was obtained. I have identified the patient, determined the appropriateness of sedation and have assessed the patient immediately prior to the procedure. All medicine(s) and interventions are by my order.
[2020-12-24] MEDS ORDERED: NOREPINEPHRINE BITARTRATE 1 MG/ML 4 ML VIAL (CATH LAB USE ONLY) ONE (13:14)
--- NOTE | 2020-12-24 13:34 | Electrocardiogram Report ---
Test Reason : Blood Pressure : / mmHG Vent. Rate : 057 BPM Atrial Rate : 057 BPM P-R Int : 162 ms QRS Dur : 082 ms QT Int : 498 ms P-R-T Axes : 048 005 002 degrees QTc Int : 484 ms Sinus bradycardia T-wave inversion in Anterior leads , consider ischemia Abnormal ECG When compared with ECG of 23-DEC-2020 23:08, T-wave inversion in Anterior leads more pronounced Confirmed by Mook Rouse ([id number]) on 12/24/2020 1:33:42 PM Referred By: REFERRED SELF Confirmed By:Mook Rouse
[2020-12-24] MEDS ORDERED: CLOPIDOGREL BISULFATE 300 MG TAB ONE (13:45)
--- NOTE | 2020-12-24 13:53 | Post Anesthesia Assessment ---
Date of Service December 24, 2020 Post Sedation Assessment Vital Signs Temp Pulse Pulse Resp BP BP Pulse Ox 12/24/20 12:07 98.2 F 56 L 16 148/94 H 96 12/24/20 09:18 62 107/64 12/24/20 09:13 120/79 12/24/20 09:04 137/84 12/24/20 07:00 98.2 F 72 20 110/65 98 12/24/20 03:14 97.7 F 55 L 18 104/63 94 12/24/20 00:50 72 16 94 12/24/20 00:04 97.9 F 84 20 121/74 95 12/23/20 22:13 97.9 F 72 19 126/76 95 12/23/20 21:31 97 12/23/20 21:04 73 16 139/72 97 12/23/20 20:30 75 24 12/23/20 20:20 80 16 12/23/20 20:10 84 28 H 12/23/20 20:00 72 23 12/23/20 19:50 72 16 12/23/20 19:40 75 24 12/23/20 19:30 74 12 12/23/20 19:20 81 22 12/23/20 19:10 80 18 12/23/20 19:00 89 25 H 139/92 12/23/20 18:50 79 22 12/23/20 18:40 79 16 12/23/20 18:31 75 19 12/23/20 18:16 97.3 F L 84 18 150/93 H 96 Recovery Score Activity: Moves 4 extremities Respiration: Deep Breath/Cough Circulation: +/-20% PreAnes Value Consciousness: Fully Awake Oxygen Saturation: O2 needed for >90% Discharge Sedation Level of Care: Fast Track Phase II Post Sedation Plan On clinical assessment, the patient appears to have tolerated the sedation without complications. Patient is recovering as anticipated. Patient will continue to be monitored by nursing and may be discharged when sedation discharge criteria are met per below protocol. Upon Completions of procedure up to 15 minutes continue every 5 minute vital signs and the P.A.R. score; then discharge to a Phase I or Fast Track to Phase II per the following guidelines: * Discharge Patient to appropriate Phase II area if PAR is 8 or greater or return to pre- procedure baseline. The post - procedure orders will be as directed. * If PAR score is less than 8 or not return to pre-procedure baseline then patient will follow Phase I monitoring till PAR is reached for Phase II. The Phase I may be done in procedure room or may call to secure a Phase I area. * If naloxone or flumazenil are used for reversal, hold in Phase I for continued monitoring from when last reversal dose was given for a minimum of 60 minutes or longer pending the nurse and/or physician discretion of patient condition before discharge to Phase II. Please call the Sedation Physician to re-evaluate and complete post-note for discharge to Phase II area. Do NOT discharge from procedure sedation or Phase 1 until post- sedation evaluation note is complete by procedure /sedation MD Sedation Discharge Instructions to be given to the patient at discharge to home.
--- NOTE | 2020-12-24 14:08 | Cardiac Catheterization ---
[facility] Data: Ip Architect Cardiac Status Clinical evaluation leading to the procedure CAD Presenation: Unstable angina Anginal Classification: CCS IV Heart Failure: No Cardiogenic Shock within 24 Hours: No Cardiac Arrest within 24 Hours: No Imaging Studies Past 6 Months: Yes Stress Studies Past 6 Months: No Diagnostic Physicians Name: Tommy Ortiz MD Status: Elective Closure Device Percutaneous Entry Location: Radial Closure Device: Radial Band Recommendations: PCI without planned CABG PCI Indication: Unstable Angina Lesion Segment Name: mid LAD Culprit Artery: Yes Stenosis Prior to Rx (%): 95% Chronic Total Occlusion: No IVUS: No FFR: No Pre-Procedure KYRA Flow: 3 Previously Treated Lesion: No Lesion Complexity: Non-High/Non-C Lesion Length (mm): 12 Thrombus Present: Yes Bifurcation Lesion: No Guidewire Across Lesion: Stenosis Post-Procedure (%): 0 Post-Procedure KYRA Flow: 3 Devices(s) Deployed: Yes Yes Intraprocedure Events Significant Disection: No Cardiac Cath Procedure Full Procedure Date December 24, 2020 Pre-Procedure Diagnosis Pre-Procedure Diagnosis: Acute Coronary Syndrome AUC Score AUC Score: 8 Post-Procedure Diagnosis Post-Procedure Diagnosis: Severe CAD, Successful PCI and Normal Intracardiac Pressures Procedure(s) Performed Procedure(s) Performed: Coronary Angiography, Left Heart Cath, Drug Eluting Stent and IVUS Sales Representative Uniforms Tommy Ortiz MD Tower Attendant(s) Wellness Assistant Estimated Blood Loss Estimated Blood Loss: 10 Medication(s) Medication(s): Clopidogrel, Fentanyl, Heparin, Lidocaine 1%, Nicardipine, Nitroglycerin and Versed Summary of Findings Indication: Suspected acute coronary syndrome Access: 6 Fr right radial artery Catheters: [place], EBU 3.5 guide Findings: LM -Short, normal caliber, no significant disease LAD -large caliber, focal 95% earlymid stenosis just after takeoff of high D1, remainder of vessel without significant disease and wraps around apex. Small D1, D2 without significant disease. Circumflex -dominant, large caliber, no significant disease. Large OM1, left PDA without disease. RCA -small, nondominant, no significant disease LVEDP -13 -- PCI -- Antithrombotic therapy: Heparin, clopidogrel Procedure: Left main cannulated with EBU 3.5 guide BMW wire passed across lesion into distal vessel [place] IVUS catheter placed into mid LAD to assess extent of disease, degree of calcification, and vessel sizing. IVUS pullback revealed focal severe, noncalcified plaque localized just after takeoff of septal/diagonal. No significant proximal LAD/left main disease. LAD lesion stented with 3.5 x 18 mm [place] drug-eluting stent Stent post-dilated with 4.0 noncompliant balloon IC vasodilators administered for spasm Repeat IVUS pullback revealed well apposed, well-expanded stent with no apparent edge complications. Post procedure KYRA 3 flow, stent well expanded, no branch vessel compromise and no other apparent cardiac complications. Arterial Closure: TR band Summary: 1. Severe single vessel coronary artery disease -95% earlymid LAD stenosis 2. Normal intracardiac filling pressure 3. Successful PCI of proximal to mid LAD with single drug-eluting stent (3.5 x 18 mm [place]; postdilated with 4.0 NC). Recommendations: To PCU for continued monitoring Loaded with clopidogrel 600 mg in Ip Architect Continue dual-antiplatelet therapy for at least 1 year Continue statin, and ASCVD risk factor modification Consult cardiac Rehab Hemodynamics Rest Ao:: 113/69/89 Final Ao: 110/68/93 LV: 130/13 Recommendations Recommendations: PCI without planned CABG Specimens Specimens: None Radiation Exposure (mGy) 1045 Contrast (mls) 70 Fluids (cc crystalloids) Fluids (cc crystalloids): 120 Drains Drains: None Anesthesia Moderate 2229-5477 Procedural Complication(s) None Disposition PCU I attest to the content of the Intraoperative Record and any orders documented therein. Any exceptions are noted below. [facility] Card Cath Procedure Codes Cardiac Catheterization Procedure 1: Cardiovascular Cath Procedures: 52376 Coronaries and LHC (+/-LV) Therapeutic Services & Ancillary Proc Procedure 1: Cardiovascular Tx and Anc Procedures: 02258 IV Ultrasound (Coronary or Graft) Moderate Sedation Procedure 1: Sedation/Anesthesia: 85637 Mod Sedation by the same physician;Init15 Min Child Age 5 & Up Procedure 2: Sedation/Anesthesia: 66177 Mod Sedation by the same physician; Ea [id number] Minutes Stenting Procedure 1: Cardiovascular Stent Procedures: 95393 Perc transcatheter placement of intracoronary stent(s), with ang PG Care Time/CCT Total # of Minutes Spent Total Time Spent with Patient: Total time spent is greater than 50% in coordination of care (as documented) at patient's floor/unit and/or counseling patient:
[2020-12-24] MEDS ORDERED: SODIUM CHLORIDE 0.9% 1000ML 1,000 ML IV SCH (14:15)
[2020-12-24] MEDS: PANTOprazole 40 MG TAB PO SCH (20:06)
[2020-12-24] MEDS: MIRTAZAPINE TAB 15 MG TAB PO SCH (20:06)
[2020-12-24] MEDS ORDERED: PANTOprazole 40 MG TAB PO SCH (21:00)
[2020-12-25 07:36] LABS: Basophils # (auto) 0.02 K/uL (0-0.2); Basophils % (auto) 0.3 %; Eosinophils # (auto) 0.14 K/uL (0-0.5); Eosinophils % (auto) 2.3 %; Hematocrit (blood only) 41.5 % (37-47); Hemoglobin 13.3 g/dL (12.0-16.0); Immature Granulocytes # (auto) 0.01 K/uL (0.00-0.02); Immature Granulocytes % (auto) 0.2 %; Lymphocytes # (auto) 2.26 K/uL (1.2-3.4); Lymphocytes % (auto) 37.2 %; Mean Corpuscular Hemoglobin 29.8 pg (25-34); Mean Platelet Volume 8.7 fL (7.4-10.4); Monocytes # (auto) 0.51 K/uL (0.11-0.59); Monocytes % (auto) 8.4 %; Neutrophils # (auto) 3.13 K/uL (1.4-6.5); Neutrophils % (auto) 51.6 %; Platelet Count 291 K/uL (130-400); RDW Coefficient of Variation 13.2 % (11.5-14.5); RDW Standard Deviation 45.1 fL (36.4-46.3); Red Blood Count 4.46 M/uL (4.2-5.4); White Blood Count 6.07 K/uL (4.8-10.8)
[2020-12-25 08:11] LABS: BUN Creatinine Ratio 28.5 (10-20); Creatinine Clr Calc Pharmacy 93.9 ml/min; Est GFR (African American) 112.9 ml/min; Est GFR (Non-African American) 97.4 ml/min
[2020-12-25] MEDS: ASPIRIN 81 MG ECTAB PO SCH (08:19)
[2020-12-25] MEDS: DULoxetine HCL 60 MG CAP PO SCH (08:19)
[2020-12-25] MEDS: FLUTICASONE/VILANTEROL 100/25MCG 14 PUFFS/INHALER INH SCH (08:19)
[2020-12-25] MEDS: METOPROLOL SUCC 25MG EXT REL TAB PO SCH (08:22)
[2020-12-25] MEDS ORDERED: ATORVASTATIN 40 MG TAB PO SCH (09:00)
[2020-12-25] MEDS ORDERED: ENOXAPARIN INJ 40 MG/0.4 ML SYR SQ SCH (09:00)
[2020-12-25] MEDS ORDERED: CLOPIDOGREL BISULFATE 75 MG TAB PO SCH (09:00)
--- NOTE | 2020-12-25 09:28 | Discharge Summary ---
Date of Service December 25, 2020 Admission HPI Per Admitting Provider Lisa Cage is a 60-year-old female with a past medical history of allergic rhinitis, asthma, allergies, and depression presenting with chest pain. She first developed chest pain on which has increased in frequency and intensity. The pain was 4/10 at it's worst, felt like pressure or a weight on her chest the pain would last about 5 minutes and was brought on by activity and when she hunched down to garden. She would have improvement with rest. She has associated nausea and shortness of breath along with numbness and tingling in her arms bilaterally (worse than her chronic numbness and tingling). She has never had anything like this prior to several days ago. She had one event on , one event on Thursday, two events on Thursday and two events on Thursday. She initially attributed the pain to back pain but she came in because the pain was getting worse. She had an ECHO in November 2019 that showed a normal EF and grade I diastolic dysfunction. Social Hx.: - denies tobacco use - 2 drinks per week down from 2 drinks per day (2 weeks prior) - denies rec. drug use sig. Family Hx.: - Father had a heart attack in his 50's - PGF had either an aneurysm or heart attack in his 30's - PGM had a heart attack in her 50's Yousuf would like to be updated with any changes @ # [phone] Principal Diagnosis NSTEMI, CAD s/p stent placement Discharge Exam Constitutional WD/WN, vitals as above Respiratory normal respiratory effort, lungs clear to auscultation Cardiovascular Rate/Rhythm: regular rate and regular rhythm Heart Sounds: no murmur Vessels: no JVD Extremities: no edema Gastrointestinal (Abdomen) normal bowel sounds, soft, nontender, no hepatosplenomegaly Skin no rashes, warm and dry Neurologic no focal motor deficits Psychiatric A+Ox3, euthymic affect Discharge Data Allergies Allergy/AdvReac Type Severity Reaction Status Date / Time venlafaxine [From Effexor] AdvReac Severe Elevated Unverified 12/23/20 20:29 Blood Pressure montelukast [From Singulair] AdvReac Unknown Unknown Unverified 12/23/20 20:29 Consultations 12/23/20 20:28 ED Decision to Admit Stat 12/23/20 22:14 Consult Cardiology Routine 12/24/20 14:10 Consult Cardiac Rehabilitation Routine Procedures Performed Operation Date: 12/24/20 12:05 Actual Procedures p Drug Eluting Stent SGl Vessel - Tobin Ortiz MD s Cineradiography w/Routine Exam - Tobin Ortiz MD s IVUS Coronary Single Vessel - Tobin Ortiz MD s Cath, Left with Cors and Vent - Tobin Ortiz MD Ordered Studies 12/24/20 10:50 CL Cath Imgs for PACS use only Routine 12/24/20 14:03 CL IVUS Coronary Single Vessel Routine Hospital Course (1) Chest pain: 60 yo F w/ pMHx. of allergic rhinitis, asthma, allergies, and depression presenting with chest pain concerning for NSTEMI NSTEMI Symptoms concerning for unstable angina and pt. found to have elevated troponin and concerns on EKG for ischemia along with concerning family history of MA at an early age. - EKG with: T wave inversion in III, AVF, V2, V3, V4, V5 no significant ST elevation or depression - Troponin: 0.108 (18:45) -> 0.069 (1:36) -> 0.039 (7:26) - Echocardiogram showing EF of 55 to 60%, normal LV systolic function, no wall motion abnormalities, grade 1 diastolic dysfunction, borderline concentric LVH - TSH normal - A1c of 5.7% - Cholesterol 202, LDL 112, HDL 48, TG 210 - Started metoprolol succinate & ASA - Cardiology consulted -- Cath performed - 95% stenosis to mid LAD. ROSANA placed. -- DAPT with clopidogrel and ASA for 1 year -- Statin and ASCVD risk factor reduction -- F/U with cardiology in 3-4 weeks -- Patient does not want cardiac rehab, recommend rest for next several days, start walking next week, then increase activity weekly - Continue atorvastatin 40mg daily - Continue DAPT per cardiology as above - Consider lisinopril but BP well controlled generally and no DM2 Asthma - continued home regimen with Breo Ellipta, levalbuterol Depression - continued duloxetine and mirtazapine Reflux - hold Omeprazole at DC due to interaction with clopidogrel - Recommend discussion of tx with PCP -- consider H2 vargas Diet: Gluten free, heart healthy Dispo: Home - Self Care (2) Asthma: (3) Depression: (4) Exertional shortness of breath: Total Time Total Time Spent Total Time Spent (In Minutes): see attending attestation Discharge Plan Discharge Items Patient Disposition: Home - Self-Care Reason For Visit: NSTEMI Discharge Diagnosis: NSTEMI, CAD s/p ROSANA insertion into LAD Condition on Discharge: Good Activity: Per Instructions section Non-emergency contact: Primary Care Provider and Sewage Screen Operator Call non-emergency contact if: you have any medication questions, your symptoms worsen and your pain is worsening Follow-up/Referrals: Mook Rouse MD [Physician] - 01/15/21 1:00 pm (Office will try to get her in sooner and will contact patient. appointment is with Maryuri Olmedo) Shikha Alejandra CRNP [Primary Care Provider] - Diet: Heart Healthy Addtl Attending Provider Instructions: You were admitted to [facility] due to periodic chest pain that was new for you starting last week. You were evaluated by cardiology and had a catheterization, which found a 95% occlusion of your left anterior descending artery. As such, you had a drug- eluting stent placed into said artery. Additionally, you were started on several new medications, which you will continue to take at discharge. These medications are: * Atorvastatin 40 mg daily * Clopidogrel 75 mg daily * Aspirin 81 mg daily * Metoprolol succinate 25 mg daily You should also STOP taking your home omeprazole due to potenital interaction with your clopidogrel. Please discuss with your PCP alternatives for this medication. Please continue to take these medications and all your regular home medications as prescribed. We have sent these to your pharmacy as discussed. Per cardiology recommendations, please rest for the next several days, you can begin walking next week and then increase your activity weekly thereafter. We recommend that you follow-up with your primary care provider for discussion of your hospitalization. A follow-up with cardiology is also recommended in 3 to 4 weeks. Pending Studies at Discharge: No Stand-Alone Forms: [facility] [employer], Smoking Cessation Medications and DC Order Prescriptions: New atorvastatin 40 mg Tablet 40 mg PO QAM 30 Days Qty: 30 RF: 0 clopidogrel 75 mg Tablet 75 mg PO QAM 30 Days Qty: 30 RF: 0 aspirin 81 mg Tablet,Delayed Release (Dr/Ec) 81 mg PO QAM Qty: 30 RF: 0 metoprolol succinate 25 mg Tablet Extended Release 24 Hr 25 mg PO QAM 30 Days Qty: 30 RF: 0 Continued budesonide-formoterol [Symbicort] 80-4.5 mcg/actuation HFA aerosol inhaler 2 puff inhalation BID Qty: 3 RF: 1 methylphenidate HCl [Concerta] 54 mg tablet extended release 24hr 54 mg PO QAM RF: 0 mirtazapine [Remeron] 15 mg tablet 15 mg PO HS RF: 0 duloxetine [Cymbalta] 30 mg capsule,delayed release(DR/EC) 60 mg PO QAM RF: 0 levalbuterol tartrate [Xopenex HFA] 45 mcg/actuation HFA aerosol inhaler 2 inh inhalation Q6H RF: 0 Discontinued omeprazole 20 mg capsule,delayed release(DR/EC) 20 mg PO HS RF: 0 Discharge Orders: Discharge Order (Routine); Ordered 12/25/20 Ordered By: Fco Shipley Admission Data Admit Date/Time: 12/23/20 21:28 Attending Provider: Treasure Ibarra Admit Provider: Felix Titus Primary Care Provider: Shikha Alejandra Other Providers: Jose L Perez ; Andrew Guillaume Other Interventions: Discharge Summary Assessment (RN) Last Done: 12/25/20 11:39 Supervising Physician Co-Signing Physician Notes Resident Physician Supervision Note: I independently interviewed and examined the patient and verified the mariano history and physical, reviewed labs and image studies and agree with resident Dr. Davis findings and care plan. Resident Activity Tracking Resident Involvement: Resident Care Provided Care Provided: Adult Hospital Medicine
--- NOTE | 2020-12-25 10:29 | Cardiology Progress Note ---
Date of Service December 25, 2020 Assessment & Plan (1) Status post insertion of drug-eluting stent into left anterior descending (LAD) artery: Plan: Status post drug-eluting stent for 95% proximal LAD stenosis. No significant remaining disease post stenting. Dual antiplatelet therapy with aspirin 81 mg and clopidogrel 75 mg daily for at least 1 year. (2) CAD (coronary artery disease): Plan: Antiplatelets as above. Atorvastatin 40 mg daily. She is not inclined to enroll in cardiac rehab, therefore rest for next several days, can begin walking next week, increase activity weekly thereafter. Cardiology follow-up with me in 3 to 4 weeks. Admission and Anticipated Discharge Date Admission Date: December 23, 2020 Subjective Uneventful night, patient feels well this morning. No chest pain, dyspnea, or other complaints. Right wrist access site appears benign. Telemetry showed sinus rhythm without dysrhythmia. Physical Exam Physical Exam: No distress. Afebrile. Normotensive. Pulse 60 bpm and regular. Skin: no ecchymoses or generalized lesions. HEENT: unremarkable. Neck: no JVD or carotid bruits. Lungs: clear. Cardiac: regular rhythm, no murmur or gallop. Abdomen: benign. Extremities: no edema, pulses intact. Right wrist access site with intact pulse and no hematoma. Neurologic: normal affect, nonfocal. Results & Data ([facility]) Vital Signs (Past 12 Hours) Vital Signs Temp Pulse Pulse Resp BP Pulse Ox 12/25/20 08:00 98.4 F 59 L 64 18 122/61 96 12/25/20 04:15 97.9 F 61 18 116/76 95 12/24/20 23:00 97.9 F 66 17 126/76 94 12/24/20 22:30 71 PG Care Time/CCT Total # of Minutes Spent Total Time Spent with Patient: Total time spent is greater than 50% in coordination of care (as documented) at patient's floor/unit and/or counseling patient: Coding Level of Care Code 22744 Subseq Hosp Care Lvl 3 Diagnoses Status post insertion of drug-eluting stent into left anterior descending (LAD) artery Z95.5 CAD (coronary artery disease) I25.10
[2020-12-25 11:56] VITALS: BP 119/71; PULSE 66; TEMP 98.6; O2SAT 98
--- NOTE | 2020-12-27 21:00 | Billing Data ---
Date of Service December 27, 2020 Coding Level of Care Code 46937 Initial Inpt Care Lvl 3
== END 2020-12-25 12:50 | disposition home or self-care (01) | DRG 247 ==
LOC: ED 18:13 → SUATTDRO 21:28 → 2S 21:28